=== PATIENT | female | born 1980 | race Two or more races ===

== ENCOUNTER 2017-07-30 09:00 | Inpatient (IN) | payer MEDICAID ==
[~2017-07-30 09:00] MED LIST: CHECK SCOPOLAMINE PATCH DAILY TOP SCH
[2017-07-30] MEDS ORDERED: cefOXitin 2 GM Vial ONE (09:50)
[2017-07-30] MEDS ORDERED: Gabapentin 300 MG Cap PO ONE (10:45)
[2017-07-30] MEDS ORDERED: Scopolamine 1.5 MG Transdermal Patch TOP SCH (10:45)
[2017-07-30] MEDS ORDERED: Acetaminophen 500 MG Tab PO ONE (10:45)
[2017-07-30] MEDS ORDERED: Dextrose 5%-Lactated Ringers 1,000 ML IV SCH (10:45)
[2017-07-30] MEDS ORDERED: Celecoxib 200 MG Cap PO ONE (10:45)
[2017-07-30] MEDS ORDERED: Ondansetron 4 MG/2 ML SDV ONE (10:56)
[2017-07-30] MEDS ORDERED: Glycopyrrolate 0.2 MG/ML 5 ML MDV ONE (10:56)
[2017-07-30] MEDS ORDERED: Neostigmine Methylsulfate 1 MG/ML 5 ML Syringe ONE (10:56)
[2017-07-30] MEDS ORDERED: fentaNYL 250 MCG/5 ML SDV ONE ×2 (10:56→13:56)
[2017-07-30] MEDS ORDERED: Dexamethasone 4 MG/ML SDV ONE (10:56)
[2017-07-30] MEDS ORDERED: Succinylcholine 200 MG/10 ML MDV ONE (10:56)
[2017-07-30] MEDS ORDERED: Propofol 200 MG/20 ML SDV ONE (10:56)
[2017-07-30] MEDS ORDERED: Lactated Ringers 1,000 ML ONE (10:59)
[2017-07-30] MEDS ORDERED: Rocuronium 50 MG/5 ML Vial ONE (11:13)
[2017-07-30] MEDS ORDERED: Lidocaine 0.4%/D5W 2 GM/500 ML BAG IV SCH (11:30)
[2017-07-30] MEDS ORDERED: Ropivacaine 52 ML, Dexamethasone 8 MG, EPINEPHrine 0.4 MG, Sodium Chloride 0.9% 25.6 ML NERVRT SCH ×4 (11:30)
[2017-07-30] MEDS ORDERED: cefOXitin 2 GM in Sodium Chloride 0.9% 50 ML IV ONE (11:30)
[2017-07-30] MEDS ORDERED: Ketamine 500 MG/5 ML MDV IV SCH (11:30)
[2017-07-30] MEDS ORDERED: Lidocaine 2% 100 MG/5 ML Syringe IVPUSH ONE (11:30)
[2017-07-30] MEDS ORDERED: hydrOXYzine HCl 100 MG/2 ML SDV IM ONE (15:30)
[2017-07-30] MEDS ORDERED: fentaNYL 100 MCG/2 ML SDV IVPUSH ONE (15:30)
[2017-07-30] MEDS ORDERED: Labetalol 20 MG/4 ML Syringe IVPUSH PRN (17:00)
[2017-07-30] MEDS ORDERED: diphenhydrAMINE 50 MG/ML SDV IVPUSH PRN (17:00)
[2017-07-30] MEDS ORDERED: Ondansetron 4 MG/2 ML SDV IVPUSH PRN (17:00)
[2017-07-30] MEDS ORDERED: Metoclopramide 10 MG/2 ML SDV IVPUSH PRN (17:00)
[2017-07-30] MEDS ORDERED: MVI, Adult with Vitamin K 10 ML, Thiamine 100 MG, Chromium/Copper/Mang/Selen/Zn 1 ML in... IV SCH ×4 (17:00)
[2017-07-30] MEDS ORDERED: hydrOXYzine HCl 100 MG/2 ML SDV IM PRN (17:00)
[2017-07-30] MEDS: Pantoprazole 40 MG Vial IVPUSH SCH (17:26)
[2017-07-30] MEDS: Acetaminophen Soln 650 MG/20.3 ML UD Cup PO SCH ×2 (17:26→23:01)
[2017-07-30] MEDS: Heparin Sodium 5,000 Units/ML Vial SUBCUT SCH (19:33)
[2017-07-30] MEDS: cefOXitin 2 GM in Sodium Chloride 0.9% 50 ML IV SCH (19:33)
[2017-07-30] MEDS ORDERED: HYDROmorphone/Normal Saline 15 MG/30 ML PCA IV PRN (20:45)
[2017-07-30] MEDS ORDERED: Naloxone 0.4 MG/ML SDV IV PRN (20:45)
[2017-07-30] MEDS: Gabapentin 250 MG/5 ML Solution ML 470 ML Bottle PO SCH (21:32)
[2017-07-31] MEDS: Dextrose 5%-Lactated Ringers 1,000 ML IV SCH ×2 (00:21→07:15)
[2017-07-31] MEDS: cefOXitin 2 GM in Sodium Chloride 0.9% 50 ML IV SCH ×2 (01:50→07:15)
[2017-07-31] MEDS ORDERED: Iohexol 647 MG/ML 50 ML SDV PO STA (04:00)
[2017-07-31] MEDS: Acetaminophen Soln 650 MG/20.3 ML UD Cup PO SCH ×2 (06:25→23:09)
[2017-07-31] MEDS: Celecoxib 200 MG Cap PO SCH (07:22)
[2017-07-31] MEDS: Heparin Sodium 5,000 Units/ML Vial SUBCUT SCH ×2 (07:22→20:44)
[2017-07-31] MEDS ORDERED: busPIRone 5 MG Tab PO PRN (07:57)
[2017-07-31] MEDS ORDERED: SUMAtriptan 50 MG Tab PO PRN (07:57)
[2017-07-31] MEDS ORDERED: Dextrose 5%-Lactated Ringers 1,000 ML IV SCH (08:00)
--- NOTE | 2017-07-31 08:31 | CR ---
UGI wo KUB HISTORY: eval R -Y GBP FINDINGS: After administration of oral contrast, upright views were obtained. Post operative changes gastric bypass. Surgical drains in place. No evidence for leak. Contrast passes freely into proximal small bowel loops. IMPRESSION: No evidence for leak or obstruction.
[2017-07-31] MEDS ORDERED: NORGESTIMATE ETHINYL ESTRADIOL PO SCH (09:00)
[2017-07-31] MEDS: Citalopram 20 MG Tab PO SCH (09:10)
[2017-07-31] MEDS: Hydrocortisone 2.5% Crm 30 GM Tube TOP SCH ×2 (09:11→20:44)
[2017-07-31] MEDS: SCOPOLAMINE PATCH CHECK TOP SCH (09:12)
[2017-07-31] MEDS: Prazosin 1 MG Cap PO SCH (09:14)
[2017-07-31] MEDS: Gabapentin 250 MG/5 ML Solution ML 470 ML Bottle PO SCH ×3 (09:16→20:45)
--- NOTE | 2017-07-31 11:23 | PN ---
DATE OF SERVICE: 07/31/2017 SUBJECTIVE: Hieu is postop day 1. Vital signs have been stable. She has been on step- one diet. Oral intake was 210. CHERYL drain put out 110 mL of a light pink serosanguineous drainage. Urine output was 2000. REVIEW OF SYSTEMS: Remainder of review of systems was negative for any pertinent positives and negatives. OBJECTIVE: GENERAL: Hieu is a 36-year-old female, alert, orientated. Communication is through her daughter who was interpreting. VITAL SIGNS: TPR is 97.8, 66, 18, blood pressure 108/53. HEENT: Negative. NECK: Supple. HEART: Regular rate and rhythm. LUNGS: Clear. ABDOMEN: Dressings are dry and intact. CHERYL drain is intact. Abdominal binder is on. EXTREMITIES: Without peripheral edema. ASSESSMENT: Laparoscopic Ghanshyam-en-Y gastric bypass surgery, 07/30/2017, Rg Chauhan MD. PLAN: 1. Decrease IV to 100 mL per hour. 2. Step-2 gastric bypass diet without cereal. 3. Saline lock IV if oral intake adequate. 4. Discontinue WEB SIZER and continuous pulse ox. 5. Dilaudid 2 mg 1-2 every 4 hours p.r.n. pain. 6. Restart home medications: Amitriptyline 25 mg p.o. at bedtime, BuSpar 7.5 mg p.o. as directed p.r.n. anxiety, citalopram 40 mg p.o. daily, clonazepam 0.5 p.o. at bedtime, hydrocortisone cream topical b.i.d. to affected area, norgestimate ethinyl 1 tablet p.o. daily, Minipress/prazosin 1 mg p.o. daily, Imitrex 50 mg p.o. as directed p.r.n. headache, trazodone 50 mg p.o. at bedtime. Dietary consult will evaluate p.r.n. or in the a.m. Shabana Singh PA-C /[id number]
[2017-07-31] MEDS: Acetaminophen 160 MG Tab,Disintegrating PO SCH ×3 (11:27→23:10)
[2017-07-31] MEDS: HYDROmorphone 2 MG Tab PO PRN ×3 (15:36→20:45)
[2017-07-31] MEDS ORDERED: MVI, Adult with Vitamin K 10 ML, Thiamine 100 MG, Chromium/Copper/Mang/Selen/Zn 1 ML in... IV SCH ×4 (16:00)
[2017-07-31] MEDS: Pantoprazole 40 MG Vial IVPUSH SCH (16:21)
[2017-07-31] MEDS ORDERED: Amitriptyline 25 MG Tab PO SCH (21:00)
[2017-07-31] MEDS ORDERED: ClonazePAM 0.5 MG Tab PO SCH (21:00)
[2017-07-31] MEDS ORDERED: traZODone 50 MG Tab PO SCH (21:00)
[2017-08-01] MEDS: HYDROmorphone 2 MG Tab PO PRN (06:02)
[2017-08-01] MEDS: Acetaminophen 160 MG Tab,Disintegrating PO SCH (06:02)
[2017-08-01] MEDS: Hydrocortisone 2.5% Crm 30 GM Tube TOP SCH (08:22)
[2017-08-01] MEDS: Heparin Sodium 5,000 Units/ML Vial SUBCUT SCH (08:22)
[2017-08-01] MEDS: Prazosin 1 MG Cap PO SCH (08:22)
[2017-08-01] MEDS: Citalopram 20 MG Tab PO SCH (08:22)
[2017-08-01] MEDS: Celecoxib 200 MG Cap PO SCH (08:22)
[2017-08-01] MEDS: SCOPOLAMINE PATCH CHECK TOP SCH (08:24)
[2017-08-01] MEDS: Gabapentin 250 MG/5 ML Solution ML 470 ML Bottle PO SCH (08:29)
[2017-08-01] MEDS ORDERED: Cyanocobalamin (Vitamin B12) 1,000 MCG/ML SDV IM ONE (09:00)
--- NOTE | 2017-08-01 09:48 | DISCH ---
ADMISSION DIAGNOSES: 1. Morbid obesity. 2. Fibromyalgia. 3. Iron deficiency anemia. 4. Anxiety and depression. 5. Intractable migraine headaches. 6. Pcl-Tazldqh-anjtwpnd patient. 7. Astigmatism. DISCHARGE DIAGNOSES: Laparoscopic Ghanshyam-en-Y gastric bypass surgery, liver biopsy and repair of diaphragmatic hernia for morbid obesity, hepatomegaly, and diaphragmatic hernia. Date of surgery, 07/30/2017. HISTORY: Hieu is a 36-year-old female with longstanding history of morbid obesity and increasing comorbidities. After preoperative evaluation and discussion of possible risks and possible complications, she wished to proceed with surgical procedure. HOSPITAL COURSE: Hieu had her surgery on 07/30/2017. She had no operative complications. On postop day #1, her upper GI was normal. She was started on a step-2 gastric bypass diet with no cereal. Her activity was good. Vital signs were stable. Pain was managed, and she received dietary instruction. She was able to be discharged to home on postop day #2, 08/01/2017. PHYSICAL EXAMINATION: GENERAL: Hieu is a 36-year-old female. VITAL SIGNS: Height is 5 feet 1 inch. Weight is 229 pounds. TPR is 96.8, 69, 18, and blood pressure 121/82. HEENT: Negative. NECK: Supple. HEART: Regular rate and rhythm. LUNGS: Clear. ABDOMEN: Incisions look good. Abdominal binder is on. EXTREMITIES: Without peripheral edema. DISPOSITION: Discharged to home. CONDITION: Stable and improving. FOLLOWUP APPOINTMENT: With Shabana Singh PA-C, at [facility], on 08/10/2017 at 10 a.m. DISCHARGE MEDICATIONS: New prescriptions; 1. Celebrex 200 mg p.o. daily #14. 2. Dilaudid 2 mg 1 to 2 q.4 hours p.r.n. pain, #40. 3. Zofran ODT 4 mg q.6 hours p.r.n. nausea, #30. 4. Gas-X 125 mg oral q.6 hours p.r.n. gas and bloating, #100. She is to resume her home medications of; 1. Celexa 40 mg daily. 2. Klonopin 0.5 mg oral at bedtime. 3. Hydrocortisone cream topical b.i.d. to affected area. 4. Prazosin 1 mg oral daily. 5. Imitrex 50 mg oral as directed p.r.n. headache. 6. Buspar 7.5 mg as directed p.r.n. anxiety. 7. Trazodone 50 mg oral at bedtime. She is to discontinue taking vitamin C, vitamin D3, vitamin B12, and ferrous sulfate until notified at her next appointment when to restart. DISCHARGE DIET: Step-2 gastric bypass diet with no cereal until August 13, 2017. ACTIVITY: No lifting greater than 10 pounds for 2 weeks. Other activity, walk 6 times daily, distance and time as tolerated. Driving, do not drive for 2 weeks or while on pain medication. Shower/bathing, may shower. DISCHARGE INSTRUCTIONS: Notify provider if any fever, increased pain, nausea, or vomiting. Wound incision care, keep site clean and dry. Wear abdominal binder for 2 weeks and then as tolerated. Special instruction, use incentive spirometer 10 times every hour while awake for 1 week. cc: Cynthia Farfan APRN, [employer] CH[employer]ER
--- NOTE | 2017-08-07 13:58 | OR ---
DATE OF PROCEDURE: 07/30/2017 PREOPERATIVE DIAGNOSIS: Morbid obesity. POSTOPERATIVE DIAGNOSES: 1. Morbid obesity. 2. Marked hepatomegaly. 3. Paraesophageal diaphragmatic hernia. OPERATIVE PROCEDURES: 1. Laparoscopic Ghanshyam-en-Y gastric bypass with long limb gastroenterostomy, (29972). 2. Juanpablo-Cut needle liver biopsy, (74664). 3. Repair of paraesophageal diaphragmatic hernia, (12266). ANESTHESIA: General. INBOUND CALL CENTER REPRESENTATIVE: Shabana Singh PA-C. INDICATIONS FOR PROCEDURE: This is a 36-year-old presenting with longstanding morbid obesity and increasingly significant comorbidities. After preoperative evaluation and discussion, she wished to proceed with a gastric bypass procedure. Potential risks of the procedure including bleeding, infection, leaks from various GI tract closures, problems with bowel obstruction over time, as well as possibility of cardiopulmonary, septic, or hemorrhagic complications leading to were all discussed, and the patient wishes to proceed. DETAILS OF PROCEDURE: The patient was taken to the operating room and placed in a supine position. After general endotracheal anesthesia was induced, she was converted to a lithotomy position. Orogastric tube was placed and the abdomen was prepped and draped. At 15 cm inferior, 5 cm left of xiphoid process, transverse incision was made and the peritoneal cavity entered under direct vision with Optiview trocar and inflated to 15 mmHg pressure with CO2. Laparoscope was then reinserted. No underlying trocar insertion site injuries were seen. Following this, bilateral subcostal transverse abdominis plane blocks were placed with correct visualization of the needle in the correct plane with injection of the standard solution bilaterally. Following this, 5 additional trocars were placed across the upper and mid abdomen and general exploration was undertaken. The patient was noted to have marked hepatomegaly with liver volume being roughly 2 to 3 times normal and liver grossly fatty infiltrated. Juanpablo-Cut needle biopsies were obtained from the left lobe of the liver and minimal bleeding from the biopsy sites were controlled with electrocautery. At this point, the omentum was divided in the midline up to the level of the transverse colon. This allowed identification of the small bowel to the ligament of Treitz. Small bowel was then traced out 200 cm distal to that point, was divided transversely with a JAY stapler. Small bowel was then traced out an additional 200 cm where the ehcc-yd-hutz enteroenterostomy was accomplished with internal firing of the Endo-JAY 60 mm stapler and common openings were then closed transversely with the same stapler, angles were anastomosed, and mesenteric defect approximated with some 0 Ethibond stitch along with fibrin sealant. Divided end of the Ghanshyam limb was from the mesentery for a few centimeters, which allowed an antecolic position from the Ghanshyam limb up to the level of the gastroesophageal junction without tension. The liver was then retracted anteriorly. The patient was noted to have a moderate-sized paraesophageal diaphragmatic hernia containing ton of omentum along with some perigastric fat and gastric fundus. This was reduced, the peritoneum overlying was incised and reflected downward. With hernia then reduced, an anterior repair was accomplished with a series of 0 Ethibond sutures reinforced with PTFE pledgets. Upon completion of that, attention was then taken to formation of the gastric pouch. The gastrointestinal balloon catheter was then centered to 15 mL and pulled up snugly against the EG junction. Gastric wall area over the apex balloon was marked with electrocautery and balloon catheter deflated and pulled up from the esophagus. The lesser omental tissue adjacent to the gastric cardia was incised allowing dissection behind the stomach at that level. The pouch formation was initiated with a transverse firing of the JAY stapler at the level of the cauterized mikki at the gastric cardia. The pouch was then completed with additional firings of JAY marsha up to and through the angle of His. Upon completion of the pouch, both staple lines were noted to be intact. The anvil of a 25 mm EEA stapler was then attached to [place] sump type tube. The latter was brought down through the mouth and taken out through a small opening in the gastric pouch allowing the anvil likewise to be pulled down to within the gastric pouch. The Ghanshyam limb was then opened and the main body of the EEA stapler passed several centimeters in the lumen of the small bowel, brought up the anvil and united with it, thus creating the gastrojejunostomy. Upon removal of stapler, double donuts of mucosa were noted within it. Small bowel was closed off with a vascular staple line. Gastrojejunostomy was then reinforced with some 3-0 Vicryl seromuscular stitch along with fibrin sealant. Leak test was accomplished with injection of 120 mL of air in the gastric pouch while submerged with a cefoxitin-containing saline solution. No leaks were identified. A single Jose M-Padilla drain was then taken out through the left lateral trocar site and placed adjacent to gastrojejunostomy and up into the splenic fossa. No further problems were noted. Trocars were removed. The peritoneal cavity was deflated. The incisions were closed with 4-0 Vicryl skin stitch, which was also used to fix the drain. Dressing applied. The patient was taken to the recovery room in satisfactory condition. Physician trust manager assistant, Shabana Singh, played an essential role in assisting in this case, helping to position the patient, retracting the structures as needed, as well as suturing and cutting sutures when indicated. Her presence improved the patient's safety and decreased operative time. Rg Chauhan MD /[id number]
== END 2017-08-01 11:14 | disposition home or self-care (01) | DRG 620 ==
LOC: EDSTATUS 09:00 → JP.SDSSCHI 10:19 → JP.SDS 10:19 → JP.2SS 14:45
PROVIDERS: ADMIT Surgery; ATTEND Surgery
PROC: 0D164ZA Bypass Stomach to Jejunum, Percutaneous Endoscopic Approach (ICD-10-PCS; principal; 2017-07-30)
PROC: 0FB24ZX Excision of Left Lobe Liver, Percutaneous Endoscopic Approach, Diagnostic (ICD-10-PCS; 2017-07-30)
PROC: 0BQT4ZZ Repair Diaphragm, Percutaneous Endoscopic Approach (ICD-10-PCS; 2017-07-30)
PROC: 3E0T3BZ Introduction of Anesthetic Agent into Peripheral Nerves and Plexi, Percutaneous Approach (ICD-10-PCS; 2017-07-30)
DX: E66.01 Morbid (severe) obesity due to excess calories (principal); K44.0 Diaphragmatic hernia with obstruction, without gangrene; Z68.41 Body mass index [BMI] 40.0-44.9, adult; R16.0 Hepatomegaly, not elsewhere classified; K76.0 Fatty (change of) liver, not elsewhere classified; M79.7 Fibromyalgia; D50.9 Iron deficiency anemia, unspecified; F41.9 Anxiety disorder, unspecified; F32.9 Major depressive disorder, single episode, unspecified; G43.919 Migraine, unspecified, intractable, without status migrainosus; H52.209 Unspecified astigmatism, unspecified eye; Z79.899 Other long term (current) drug therapy; Z98.891 History of uterine scar from previous surgery; G43.909 Migraine, unspecified, not intractable, without status migrainosus
CPT/HCPCS: 36415; 74240; 74240-26; 82962; 84703; 85027; 86850; 86900; 86901; 88307; 88313; A9270-GY; C9113; J0171; J0330; J0694; J1100; J1170; J1644; J2001; J2405; J2704; J2710; J2795; J3010; J3410; J3411; J3420; J7030; J7042; J7050; J7120

== ENCOUNTER 2017-09-18 09:09 | Day surgery (SDC) | payer MEDICAID ==
[2017-09-18] MEDS ORDERED: Lactated Ringers 1,000 ML IV ONE (09:41)
[2017-09-18] MEDS ORDERED: Cyanocobalamin (Vitamin B12) 1,000 MCG/ML SDV IM ONE (10:00)
[2017-09-18] MEDS: Glycopyrrolate 0.2 MG/ML 2 ML SDV IVPUSH ONE ×2 (10:08→11:52)
[2017-09-18] MEDS ORDERED: MVI, Adult with Vitamin K 10 ML, Thiamine 200 MG, Chromium/Copper/Mang/Selen/Zn 1 ML in... IV ONE ×8 (10:30→11:41)
[2017-09-18] MEDS ORDERED: Midazolam 1 MG/ML 2 ML SDV ONE (10:48)
[2017-09-18] MEDS ORDERED: Propofol 200 MG/20 ML SDV ONE (10:48)
[2017-09-18] MEDS ORDERED: fentaNYL 100 MCG/2 ML SDV ONE (10:48)
--- NOTE | 2017-09-24 13:25 | OR ---
DATE OF PROCEDURE: 09/18/2017 PREOPERATIVE DIAGNOSIS: Probable stricture at gastrojejunostomy. POSTOPERATIVE DIAGNOSIS: Probable stricture at gastrojejunostomy. OPERATIVE PROCEDURE: Upper GI endoscopy with dilation of gastrojejunostomy (49839). ANESTHESIA: IV sedation. INDICATIONS FOR PROCEDURE: The patient is little over a month status post Ghanshyam-en-Y gastric bypass who presents with symptoms suggestive of stricturing at her gastrojejunostomy. The plan is to proceed with an upper GI endoscopy with dilation as indicated. Potential risks including bleeding and perforation were discussed, and the patient wishes to proceed. DETAILS OF PROCEDURE: The patient was taken to the operating room and placed in a left lateral decubitus position. IV sedation was administered, after which the upper GI endoscope was passed orally through the length of the esophagus and into the gastric pouch. The patient was noted to have no retained food or fluid there, but did have a moderate stricture present. Bard gastrointestinal balloon catheter was then centered across the anastomosis and inflated to 36-Yi size. This was held in position for 1 minute, after which the balloon catheter was deflated and withdrawn. The scope could easily then be passed through the anastomosis and no complications were noted. The patient was taken to the recovery room in a satisfactory condition. Rg Chauhan MD /[id number]
== END 2017-09-18 13:35 | disposition home or self-care (01) ==
LOC: JP.SDS 09:09
PROVIDERS: ATTEND Surgery
DX: R13.10 Dysphagia, unspecified (principal); K31.89 Other diseases of stomach and duodenum; K21.9 Gastro-esophageal reflux disease without esophagitis; E66.01 Morbid (severe) obesity due to excess calories; F41.9 Anxiety disorder, unspecified; F32.9 Major depressive disorder, single episode, unspecified; Z98.84 Bariatric surgery status
CPT/HCPCS: 43245; J2250; J2704; J3010; J3411; J3420; J7120; J3490

== ENCOUNTER 2021-12-20 07:00 | Inpatient (IN) | payer MEDICAID ==
[2021-12-20] MEDS ORDERED: fentaNYL 100 MCG/2 ML SDV ONE ×3 (08:00→10:20)
[2021-12-20] MEDS ORDERED: Acetaminophen 500 MG Tab PO SCH (10:15)
[2021-12-20] MEDS ORDERED: Gabapentin 100 MG Cap PO SCH (10:15)
[2021-12-20] MEDS ORDERED: Scopolamine 1.5 MG Transdermal Patch TRDERM SCH (10:15)
[2021-12-20] MEDS ORDERED: Glycopyrrolate 0.2 MG/ML 5 ML MDV ONE (10:20)
[2021-12-20] MEDS ORDERED: Propofol 200 MG/20 ML SDV ONE (10:20)
[2021-12-20] MEDS ORDERED: Meropenem 500 MG SDV ONE (10:20)
[2021-12-20] MEDS ORDERED: Succinylcholine 200 MG/10 ML MDV ONE (10:20)
[2021-12-20] MEDS ORDERED: Neostigmine Methylsulfate 1 MG/ML 5 ML Syringe ONE (10:20)
[2021-12-20] MEDS ORDERED: Bupivacaine 0.5% 50 ML MDV ONE (10:20)
[2021-12-20] MEDS ORDERED: Rocuronium 50 MG/5 ML Vial ONE (10:20)
[2021-12-20] MEDS ORDERED: Dexamethasone 4 MG/ML SDV ONE (10:20)
[2021-12-20] MEDS ORDERED: Ondansetron 4 MG/2 ML SDV ONE (10:20)
[2021-12-20] MEDS ORDERED: Lidocaine 1% with EPINEPHrine 1:100,000 50 ML MDV ONE (10:20)
[2021-12-20] MEDS ORDERED: Dextrose 5%-Lactated Ringers 1,000 ML IV ONE (10:30)
[2021-12-20] MEDS ORDERED: Dextrose 5%-Lactated Ringers 1,000 ML IV SCH (11:20)
[2021-12-20] MEDS: cefOXitin 2 GM in Sodium Chloride 0.9% 50 ML IV SCH (12:35)
[2021-12-20] MEDS ORDERED: SODIUM CHLORIDE 0.9% EPIDUR ONE ×2 (13:10)
[2021-12-20] MEDS ORDERED: FENTANYL EPIDUR ONE ×2 (13:10)
[2021-12-20] MEDS ORDERED: Lactated Ringers 1,000 ML IV ONE (14:00)
[2021-12-20] MEDS ORDERED: Pantoprazole 40 MG Vial IV ONE (17:00)
[2021-12-20] MEDS ORDERED: cefOXitin 2 GM in Sodium Chloride 0.9% 50 ML IV ONE (17:15)
[2021-12-20] MEDS ORDERED: diphenhydrAMINE 50 MG/ML SDV IV ONE (17:15)
[2021-12-20] MEDS ORDERED: MVI, Adult with Vitamin K 10 ML, Zinc/Copper/Manganese/Selenium 1 ML, Thiamine 200 MG i... IV ONE ×4 (21:00)
[2021-12-20] MEDS ORDERED: Lactated Ringers 500 ML IV ONE (22:45)
[2021-12-21] MEDS ORDERED: cefOXitin 2 GM in Sodium Chloride 0.9% 50 ML IV ONE ×4 (00:05→18:20)
[2021-12-21] MEDS ORDERED: Lactated Ringers 500 ML IV ONE (02:00)
[2021-12-21] MEDS ORDERED: Dextrose 5%-Lactated Ringers 1,000 ML with Naloxone 0.4 MG IV ONE ×4 (03:15→09:45)
[2021-12-21] MEDS ORDERED: Iopamidol 612 MG/ML 50 ML SDV PO PRN (04:03)
[2021-12-21] MEDS ORDERED: Ondansetron 4 MG/2 ML SDV ONE ×3 (09:00)
[2021-12-21] MEDS ORDERED: Pantoprazole 40 MG Vial ONE (09:00)
[2021-12-21] MEDS ORDERED: Celecoxib 200 MG Cap ONE ×2 (09:00)
[2021-12-21] MEDS ORDERED: hydrOXYzine HCL 100 MG/2 ML SDV ONE ×2 (09:00)
[2021-12-21] MEDS ORDERED: Metoclopramide 10 MG/2 ML SDV ONE ×2 (09:00)
[2021-12-21] MEDS ORDERED: Dextrose 5%-Lactated Ringers 1,000 ML IV ONE (09:45)
[2021-12-21] MEDS ORDERED: Cyclobenzaprine 10 MG Tab PO ONE ×2 (11:30→20:36)
[2021-12-21] MEDS ORDERED: SODIUM CHLORIDE 0.9% EPIDUR ONE ×2 (13:35)
[2021-12-21] MEDS ORDERED: FENTANYL EPIDUR ONE ×2 (13:35)
[2021-12-21] MEDS ORDERED: MVI, Adult with Vitamin K 10 ML, Zinc/Copper/Manganese/Selenium 1 ML, Thiamine 200 MG i... IV ONE ×4 (15:30)
[2021-12-22] MEDS ORDERED: Dextrose 5%-Lactated Ringers 1,000 ML with Naloxone 0.4 MG IV ONE ×2 (00:10)
[2021-12-22] MEDS ORDERED: Midazolam 1 MG/ML 2 ML SDV ONE (07:00)
[2021-12-22] MEDS ORDERED: Propofol 200 MG/20 ML SDV ONE ×2 (07:00)
[2021-12-22] MEDS ORDERED: Meropenem 500 MG SDV ONE (07:00)
[2021-12-22] MEDS ORDERED: Bupivacaine 0.5% 50 ML MDV ONE (07:00)
[2021-12-22] MEDS ORDERED: Lidocaine 1% with EPINEPHrine 1:100,000 50 ML MDV ONE (07:00)
[2021-12-22] MEDS ORDERED: Pantoprazole 40 MG Delayed-Release Granules 1 Packet ONE (09:00)
[2021-12-22] MEDS ORDERED: Celecoxib 200 MG Cap ONE ×2 (09:00)
[2021-12-22] MEDS ORDERED: Cyclobenzaprine 10 MG Tab ONE (09:00)
[2021-12-22] MEDS ORDERED: Magnesium Sulfate/Water 50 ML IV ONE ×3 (10:30→22:00)
[2021-12-22] MEDS ORDERED: HYDROmorphone 2 MG Tab PO ONE (17:00)
[2021-12-22] MEDS ORDERED: Cyanocobalamin (Vitamin B12) 1,000 MCG/ML SDV IM ONE (21:00)
[2021-12-23] MEDS ORDERED: Magnesium Sulfate/Water 50 ML IV ONE ×2 (03:05→09:00)
[2021-12-23] MEDS ORDERED: HYDROmorphone 2 MG Tab PO ONE (07:30)
[2021-12-23] MEDS ORDERED: Celecoxib 200 MG Cap PO ONE (08:40)
[2021-12-23] MEDS ORDERED: Cyanocobalamin (Vitamin B12) 1,000 MCG/ML SDV IM ONE (09:00)
[2022-01-14 21:35] LABS: ESTIMATED GFR 111 mL/min (>60)
== END 2021-12-23 11:30 | disposition home or self-care (01) | DRG 329 ==
LOC: JP.SDS 07:00 → JP.ZCENSUS 12:15
PROVIDERS: ADMIT Surgery; ATTEND Surgery
PROC: 0DS80ZZ Reposition Small Intestine, Open Approach (ICD-10-PCS; principal; 2021-12-20)
PROC: 0DB80ZZ Excision of Small Intestine, Open Approach (ICD-10-PCS; 2021-12-20)
PROC: 0DTF0ZZ Resection of Right Large Intestine, Open Approach (ICD-10-PCS; 2021-12-20)
PROC: 3E0M05Z Introduction of Adhesion Barrier into Peritoneal Cavity, Open Approach (ICD-10-PCS; 2021-12-20)
PROC: 0WQF0ZZ Repair Abdominal Wall, Open Approach (ICD-10-PCS; 2021-12-22)
DX: K95.89 Other complications of other bariatric procedure (principal); K56.2 Volvulus; K91.2 Postsurgical malabsorption, not elsewhere classified; Z68.41 Body mass index [BMI] 40.0-44.9, adult; E53.8 Deficiency of other specified B group vitamins; Z20.822 Contact with and (suspected) exposure to COVID-19; E55.9 Vitamin D deficiency, unspecified; E53.9 Vitamin B deficiency, unspecified; K21.9 Gastro-esophageal reflux disease without esophagitis; F41.9 Anxiety disorder, unspecified; F32.A Depression, unspecified; M79.7 Fibromyalgia; D50.9 Iron deficiency anemia, unspecified; E66.01 Morbid (severe) obesity due to excess calories; Z79.899 Other long term (current) drug therapy
CPT/HCPCS: 36415; 74240; 74240-26; 80053; 81025; 83735; 84100; 85027; 88302; 88307; 94762; A9270-GY; C9113; J0171; J0330; J0694; J1100; J1200; J2185; J2250; J2310; J2405; J2704; J2710; J2765; J2795; J3010; J3410; J3411; J3420; J3475; J3490; J7050; J7120; J7121; Q9967; U0002

== ENCOUNTER 2022-05-02 09:13 | Inpatient (IN) | payer MEDICAID ==
[~2022-05-02 09:13] MED LIST changes: -CHECK SCOPOLAMINE PATCH DAILY TOP SCH; +Dexamethasone 4 MG/ML SDV ONE; +Glycopyrrolate 0.2 MG/ML 5 ML MDV ONE; +Neostigmine Methylsulfate 1 MG/ML 5 ML Syringe ONE; +Ondansetron 4 MG/2 ML SDV ONE; +Propofol 200 MG/20 ML SDV ONE; +Rocuronium 50 MG/5 ML Vial ONE; +Succinylcholine 200 MG/10 ML MDV ONE; +fentaNYL 250 MCG/5 ML SDV ONE
[2022-05-02] MEDS ORDERED: Gabapentin 100 MG Cap PO ONE (09:45)
[2022-05-02] MEDS ORDERED: Scopolamine 1.5 MG Transdermal Patch TOP SCH (10:00)
[2022-05-02] MEDS ORDERED: Acetaminophen 500 MG Tab PO ONE (10:00)
[2022-05-02] MEDS ORDERED: Dextrose 5%-Lactated Ringers 1,000 ML IV SCH (10:00)
[2022-05-02] MEDS ORDERED: Celecoxib 200 MG Cap PO ONE (10:00)
[2022-05-02] MEDS ORDERED: ceFAZolin 2 GM in Sodium Chloride 0.9% 50 ML IV ONE (10:30)
[2022-05-02] MEDS ORDERED: Ketamine 15 MG in Sodium Chloride 0.9% 19.85 ML IV SCH (10:45)
[2022-05-02] MEDS ORDERED: Ropivacaine 30 ML, dexAMETHasone 8 MG, EPINEPHrine 0.4 MG, Sodium Chloride 0.9% 47.6 ML NERVRT SCH ×4 (10:45)
[2022-05-02] MEDS ORDERED: Ketamine 500 MG/5 ML MDV IV SCH (10:45)
[2022-05-02] MEDS ORDERED: Meropenem 500 MG SDV ONE (10:51)
[2022-05-02] MEDS ORDERED: Bupivacaine 0.5% 50 ML MDV ONE (10:52)
[2022-05-02] MEDS ORDERED: Lidocaine 1% with EPINEPHrine 1:100,000 50 ML MDV ONE (10:52)
[2022-05-02] MEDS ORDERED: Meropenem 500 MG SDV IRR ONE (12:18)
[2022-05-02] MEDS ORDERED: Linezolid 600 MG/300 ML Premix Bag IRR ONE (12:19)
[2022-05-02] MEDS ORDERED: Sugammadex Sodium 200 MG/2 ML VIAL ONE (13:10)
[2022-05-02] MEDS ORDERED: Naloxone 0.4 MG/ML SDV IVPUSH PRN (13:35)
[2022-05-02] MEDS ORDERED: diphenhydrAMINE 25 MG Cap PO PRN (13:35)
[2022-05-02] MEDS ORDERED: Ondansetron 4 MG/2 ML SDV IVPUSH PRN (13:35)
[2022-05-02] MEDS ORDERED: diphenhydrAMINE 50 MG/ML SDV IVPUSH PRN (13:35)
[2022-05-02] MEDS ORDERED: fentaNYL 50 MCG/ML SDV IVPUSH ONE (13:36)
[2022-05-02] MEDS ORDERED: hydrOXYzine HCL 100 MG/2 ML SDV IM ONE (13:36)
[2022-05-02] MEDS: HYDROmorphone/Normal Saline 6 MG/30 ML PCA Vial IV PRN (13:44)
[2022-05-02] MEDS ORDERED: hydrOXYzine HCL 100 MG/2 ML SDV IM PRN (14:58)
[2022-05-02] MEDS ORDERED: ceFAZolin 2 GM in Premix Bag 1 BAG IV SCH (16:00)
[2022-05-02] MEDS: ceFAZolin 2 GM in Sodium Chloride 0.9% 50 ML IV SCH ×2 (16:03→23:54)
[2022-05-02] MEDS: Acetaminophen 500 MG Tab PO SCH ×2 (16:03→21:38)
[2022-05-02] MEDS: Celecoxib 200 MG Cap PO SCH (21:36)
[2022-05-02] MEDS: Docusate Sodium 100 MG Cap PO SCH (21:36)
[2022-05-02] MEDS: Prazosin 1 MG Cap PO SCH (21:36)
[2022-05-02] MEDS: Pantoprazole 40 MG Tab.CR PO SCH (21:38)
[2022-05-02] MEDS: Dextrose 5%-Lactated Ringers 1,000 ML IV SCH (22:17)
[2022-05-03] MEDS: Acetaminophen 500 MG Tab PO SCH ×4 (03:44→21:07)
[2022-05-03] MEDS: HYDROmorphone/Normal Saline 6 MG/30 ML PCA Vial IV PRN (05:16)
[2022-05-03] MEDS: Dextrose 5%-Lactated Ringers 1,000 ML IV SCH ×3 (07:00→17:27)
[2022-05-03] MEDS: ceFAZolin 2 GM in Sodium Chloride 0.9% 50 ML IV SCH (08:20)
[2022-05-03] MEDS: Celecoxib 200 MG Cap PO SCH ×2 (08:21→21:06)
[2022-05-03] MEDS: Citalopram 20 MG Tab PO SCH (08:21)
[2022-05-03] MEDS: Docusate Sodium 100 MG Cap PO SCH ×2 (08:22→21:06)
[2022-05-03] MEDS: Cetirizine 10 MG Tab PO SCH (08:23)
[2022-05-03] MEDS: Pantoprazole 40 MG Tab.CR PO SCH ×2 (08:23→21:07)
[2022-05-03] MEDS: Prazosin 1 MG Cap PO SCH ×2 (08:27→21:07)
[2022-05-03] MEDS ORDERED: Remove SCOP Patch TRDERM ONE (09:00)
[2022-05-03] MEDS: Ondansetron 4 MG/2 ML SDV IVPUSH PRN (09:20)
[2022-05-03] MEDS: Bisacodyl 5 MG Tab PO SCH ×2 (09:25→21:07)
[2022-05-03] MEDS: VERIFY SCOP PATCH TOP SCH ×2 (10:16→21:11)
[2022-05-04] MEDS: Ondansetron 4 MG/2 ML SDV IVPUSH PRN (02:47)
[2022-05-04] MEDS: Acetaminophen 500 MG Tab PO SCH ×4 (03:59→22:12)
[2022-05-04] MEDS: Dextrose 5%-Lactated Ringers 1,000 ML IV SCH (04:00)
[2022-05-04] MEDS: Ondansetron 4 MG Tab.DIS PO PRN ×2 (05:39→22:19)
[2022-05-04] MEDS ORDERED: HYDROmorphone 2 MG Tab PO PRN (07:42)
[2022-05-04] MEDS ORDERED: Polyethylene Glycol 3350 Powder 17 GM Packet PO ONE (08:15)
[2022-05-04] MEDS: Metoclopramide 10 MG/2 ML SDV IV SCH ×3 (08:43→20:13)
[2022-05-04] MEDS: Citalopram 20 MG Tab PO SCH (08:43)
[2022-05-04] MEDS: Docusate Sodium 100 MG Cap PO SCH ×2 (08:43→22:12)
[2022-05-04] MEDS: Cetirizine 10 MG Tab PO SCH (08:43)
[2022-05-04] MEDS: Celecoxib 200 MG Cap PO SCH ×2 (08:43→22:12)
[2022-05-04] MEDS: Bisacodyl 5 MG Tab PO SCH ×2 (08:43→22:09)
[2022-05-04] MEDS: Pantoprazole 40 MG Tab.CR PO SCH ×2 (08:43→22:12)
[2022-05-04] MEDS: Prazosin 1 MG Cap PO SCH ×2 (08:43→22:09)
[2022-05-04] MEDS: VERIFY SCOP PATCH TOP SCH ×2 (08:44→22:25)
[2022-05-04] MEDS ORDERED: Remove SCOP Patch TRDERM ONE (09:00)
[2022-05-04] MEDS: Magnesium Hydroxide 400 MG/5 ML Susp 30 ML Cup PO SCH ×2 (09:09→22:08)
[2022-05-05] MEDS: Acetaminophen 500 MG Tab PO SCH (03:02)
[2022-05-05] MEDS: Metoclopramide 10 MG/2 ML SDV IV SCH ×2 (03:02→07:59)
[2022-05-05] MEDS: Bisacodyl 5 MG Tab PO SCH (08:01)
[2022-05-05] MEDS: Magnesium Hydroxide 400 MG/5 ML Susp 30 ML Cup PO SCH (08:01)
[2022-05-05] MEDS: Pantoprazole 40 MG Tab.CR PO SCH (08:01)
[2022-05-05] MEDS: Celecoxib 200 MG Cap PO SCH (08:01)
[2022-05-05] MEDS: Cetirizine 10 MG Tab PO SCH (08:01)
[2022-05-05] MEDS: Docusate Sodium 100 MG Cap PO SCH (08:02)
[2022-05-05] MEDS: Citalopram 20 MG Tab PO SCH (08:02)
[2022-05-05] MEDS: VERIFY SCOP PATCH TOP SCH (08:03)
[2022-05-05] MEDS: Prazosin 1 MG Cap PO SCH (09:18)
== END 2022-05-05 09:45 | disposition home or self-care (01) | DRG 355 ==
LOC: JP.SDS 09:13 → JP.MS 14:12
PROVIDERS: ADMIT Surgery; ATTEND Surgery
PROC: 0WUF4JZ Supplement Abdominal Wall with Synthetic Substitute, Percutaneous Endoscopic Approach (ICD-10-PCS; principal; 2022-05-02)
PROC: 0WUF4JZ Supplement Abdominal Wall with Synthetic Substitute, Percutaneous Endoscopic Approach (ICD-10-PCS; 2022-05-02)
PROC: 8E0W4CZ Robotic Assisted Procedure of Trunk Region, Percutaneous Endoscopic Approach (ICD-10-PCS; 2022-05-05)
DX: K43.0 Incisional hernia with obstruction, without gangrene (principal); K42.0 Umbilical hernia with obstruction, without gangrene; F41.9 Anxiety disorder, unspecified; F32.A Depression, unspecified; G43.909 Migraine, unspecified, not intractable, without status migrainosus; Z98.84 Bariatric surgery status; E66.01 Morbid (severe) obesity due to excess calories; Z68.25 Body mass index [BMI] 25.0-25.9, adult
CPT/HCPCS: 74018; 74018-26; 81025; 88302; A9270-GY; C1781; J0171; J0330; J0690; J1100; J1170; J2020; J2185; J2405; J2704; J2710; J2765; J2795; J3010; J3410; J3490; J7121; Q0162